=== PATIENT | male | born 1985 | race American Indian/Alaskan Native ===

== ENCOUNTER 2018-07-22 15:00 | Emergency (ER) | payer SELFPAY ==
--- NOTE | 2018-07-22 15:21 | Emergency Department Report ---
Blank Doc - Documentation Documentation: This is a 33-year-old male that presents with URI symptoms. This initial assessment/diagnostic orders/clinical plan/treatment(s) is/are subject to change based on patient's health status, clinical progression and re- assessment by fellow clinical providers in the ED. Further treatment and workup at subsequent clinical providers discretion. Patient/guardians urged not to elope from the ED as their condition may be serious if not clinically assessed and managed. Initial orders include: 1- Patient sent to [facility] for further evaluation and treatment 2- CXR
[2018-07-22 15:23] VITALS: BP 115/83
--- NOTE | 2018-07-22 16:13 | XRay Report ---
PROCEDURE: XR CHEST ROUTINE 2V TECHNIQUE: PA and lateral chest radiographs were obtained. HISTORY: cough COMPARISONS: None. FINDINGS: Frontal and lateral views the chest were acquired and demonstrate that the heart is normal in size. The lungs appear clear. The pleura and mediastinum are within normal limits. There is a left basal granuloma 0.4 cm. IMPRESSION: No active disease in the chest This document is electronically signed by Jose J Machuca MD., Jul 22 2018 04:11:06 PM ET
[2018-07-22] MEDS ORDERED: DELTASONE PO ONE (19:40)
[2018-07-22] MEDS ORDERED: TESSALON PERLES PO ONE (19:40)
[2018-07-22] MEDS ORDERED: PROVENTIL IH ONE (19:40)
--- NOTE | 2018-07-22 19:41 | Emergency Department Report ---
Minor Respiratory - HPI Chief Complaint: Upper Respiratory Infection Stated Complaint: CHEST PAIN/DASH Time Seen by Provider: 07/22/18 15:20 ED Review of Systems ROS: Stated complaint: CHEST PAIN/DASH Other details as noted in HPI ED Past Medical Hx - Past Medical History Previous Medical History?: Yes Hx HIV: Yes - Social History Smoking Status: Current Every Day Smoker Substance Use Type: None - Medications Home Medications: Home Medications Medication Instructions Recorded Confirmed Last Taken Type Albuterol Sulfate [Ventolin Hfa] 1 puff IH QID PRN #1 hfa.aer.ad 07/22/18 Unknown Rx Benzonatate [Tessalon Perles] 100 mg PO Q8HR PRN #15 capsule 07/22/18 Unknown Rx Cetirizine HCl [Zyrtec 10mg tab] 10 mg PO QDAY #30 tablet 07/22/18 Unknown Rx Minor Respiratory Exam - Exam General: Vital signs noted. No distress. Alert and acting appropriately. HEENT: Yes Moist Mucous Membranes, No Pharyngeal Erythema, No Pharyngeal Exudates, No Rhinorrhea, No Conjuctival Injection, No Frontal Tenderness, No Maxillary Tenderness Neck: Yes Supple, No Adenopathy Lungs: Yes Good Air Exchange, No Wheezes, No Ronchi, No Stridor, No Cough, No Labored Respirations, No Retractions, No Use of Accessory Muscles, No Other Abnormal Lung Sounds Heart: Yes Regular, No Murmur Abdomen: Yes Normal Bowel Sounds, No Tenderness, No Peritoneal Signs Skin: No Rash, No Edema Neurologic: Alert and oriented, no deficits. Musculoskeletal: Unremarkable. ED Course Vital Signs 07/22/18 15:20 Temperature 98.4 F Pulse Rate 95 H Respiratory 18 Rate Blood Pressure 115/83 O2 Sat by Pulse 100 Oximetry ED Medical Decision Making - Radiology Data Radiology results: report reviewed Patient: ALBERTINA ROTH MR#: [id number] : 1985 Acct:[id number] Age/Sex: 33 / M ADM Date: 07/22/18 Loc: ED Attending Dr: Ordering Physician: AUSTYN LISA NP Date of Service: 07/22/18 Procedure(s): XR chest routine 2V Accession Number(s): [id number] cc: AUSTYN LISA NP Fluoro Time In Minutes: PROCEDURE: XR CHEST ROUTINE 2V TECHNIQUE: PA and lateral chest radiographs were obtained. HISTORY: cough COMPARISONS: None. FINDINGS: Frontal and lateral views the chest were acquired and demonstrate that the heart is normal in size. The lungs appear clear. The pleura and mediastinum are within normal limits. There is a left basal granuloma 0.4 cm. IMPRESSION: No active disease in the chest This document is electronically signed by Jose J Machuca MD., Jul 22 2018 04:11:06 PM ET Transcribed By: BASIL Dictated By: JOSE J MACHUCA MD Electronically Authenticated By: JOSE J MACHUCA MD Signed Date/Time: 07/22/181612 DD/ 39 TD/TT: 07/22/18 154 - Medical Decision Making Patient has been evaluated by this provider and [facility]. 33-year-old male that is immune compromised comes in for cough shortness of breathing 1 week. Patient reports he has a history of asthma has been out of his inhaler for a week. Patient was given a nebulizer treatment and prednisone and chest x-ray shows normal examination. Patient was discharged home for albuterol inhaler and instructions to take Zyrtec's daily. Patient is afebrile test and need for antibiotics. Critical care attestation.: If time is entered above; I have spent that time in minutes in the direct care of this critically ill patient, excluding procedure time. ED Disposition Clinical Impression: Asthma Qualifiers: Asthma severity: unspecified severity Asthma complication type: unspecified Allergic rhinitis Qualifiers: Allergic rhinitis trigger: unspecified Allergic rhinitis seasonality: seasonal Qualified Code(s): J30.2 - Other seasonal allergic rhinitis Disposition: DC-01 TO HOME OR SELFCARE Is pt being admited?: No Does the pt Need Aspirin: No Condition: Stable Instructions: Asthma (ED), Allergic Rhinitis (ED) Additional Instructions: Please take medications as prescribed. Follow up her primary care provider if his symptoms persist or gets worse. Prescriptions: Benzonatate [Tessalon Perles] 100 mg PO Q8HR PRN #15 capsule PRN Reason: Cough Albuterol Sulfate [Ventolin Hfa] 1 puff IH QID PRN #1 hfa.aer.ad PRN Reason: Shortness Of Breath Cetirizine HCl [Zyrtec 10mg tab] 10 mg PO QDAY #30 tablet Referrals: SERENA PAREDES MD [Other] - 3-5 Days
== END 2018-07-22 20:40 | disposition home or self-care (01) ==
LOC: ED 15:00
DX: J45.909 Unspecified asthma, uncomplicated (principal); J30.2 Other seasonal allergic rhinitis; F17.200 Nicotine dependence, unspecified, uncomplicated
CPT/HCPCS: 71046; 99283; J7512; 94640